=== PATIENT | male | born 1985 | race Caucasian/White ===

== ENCOUNTER 2020-11-29 09:50 | Emergency (ER) | payer SELFPAY ==
[2020-11-29 09:52] VITALS: BP 144/95; PULSE 88; RESP 16; TEMP 36.6; O2SAT 98; BMI 24.3
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
[2020-11-29 10:30] VITALS: BP 119/79; PULSE 72; O2SAT 100
[2020-11-29 11:00] VITALS: BP 104/71; PULSE 76; O2SAT 100
[2020-11-29 11:47] VITALS: BP 118/73; PULSE 65; RESP 18; TEMP 36.7; O2SAT 99
== END 2020-11-29 11:48 | disposition home or self-care (01) ==
PROVIDERS: Emergency Provider Emergency Medicine
DX: S20.212A Contusion of left front wall of thorax, initial encounter (principal); T07.XXXA Unspecified multiple injuries, initial encounter; V28.0XXA Motorcycle driver injured in noncollision transport accident in nontraffic accident, initial encounter; Y92.488 Other paved roadways as the place of occurrence of the external cause
CPT/HCPCS: 71046; 99282